=== PATIENT | female | born 2000 | race Caucasian/White ===

== ENCOUNTER 2023-12-28 18:16 | Emergency (ER) | payer SELFPAY ==
[2023-12-28 18:20] VITALS: BMI 28.1
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
[2023-12-28] MEDS: naproxen 500 mg Tablet PO (18:59)
[2023-12-28 19:35] VITALS: BP 116/78; PULSE 76; RESP 14; O2SAT 97
== END 2023-12-28 19:42 | disposition home or self-care (01) ==
PROVIDERS: Emergency Provider Emergency Medicine
DX: S13.4XXA Sprain of ligaments of cervical spine, initial encounter (principal); V89.2XXA Person injured in unspecified motor-vehicle accident, traffic, initial encounter
CPT/HCPCS: 70450; 72125; 99284